=== PATIENT | female | born 1975 | race Caucasian/White ===

== ENCOUNTER 2024-01-06 07:57 | Day surgery (SDC) | payer OTHER ==
[~2024-01-06] VITALS: Ht 160 cm; Wt 65.8 kg
[2024-01-06] MEDS ORDERED: LIDOCAINE 2% 100 MG/5 ML UJET TP ONE ×2 (10:17→11:25)
[2024-01-06] MEDS ORDERED: fentaNYL citrate 0.05 MG/ML VIAL ONE (10:17)
[2024-01-06] MEDS: fentaNYL citrate 0.05 MG/ML VIAL IVP ONE (10:37)
== END 2024-01-06 11:50 | disposition home or self-care (01) ==
LOC: MOR 07:57 → MMU 07:58 → MOR 11:50
PROVIDERS: ATTEND Internal Medicine Gastroenterology
DX: Z12.11 Encounter for screening for malignant neoplasm of colon (principal); Z98.890 Other specified postprocedural states
CPT/HCPCS: 45378; J3010